=== PATIENT | male | born 1980 | race American Indian/Alaskan Native ===

== ENCOUNTER 2020-12-07 00:31 | Emergency (ER) | payer SELFPAY ==
--- NOTE | 2020-12-07 01:00 | Emergency Department Report ---
ED General Adult HPI - General Stated complaint: LEFTSIDE EARACHE/HEAD PAIN Time Seen by Provider: 12/07/20 00:55 - History of Present Illness Initial comments: 40 yo AA M pt presents with complaints of left ear pain x 3 months, worsening now with left facial pain and pressure x 5 days. He denies any decreased hearing, ear drainage, fever/chills/sweats, cough, or dysphagia. Pt rates his pain as a 8/10 in severity. He states hx of recurrent sinus infections and states this pain is similar. He denies currently following with an ENT specialist. - Related Data Previous Rx's Medication Instructions Recorded Last Taken Type Amoxicillin/Potassium Clav 1 each PO BID 10 Days #20 tablet 12/07/20 Unknown Rx [Augmentin 875-125 Tablet] Ibuprofen [Motrin 800 MG tab] 800 mg PO Q8HR PRN #20 tablet 12/07/20 Unknown Rx Prednisone [predniSONE 10 mg 10 mg PO .TAPER #1 tab.ds.pk 12/07/20 Unknown Rx (6-Day Pack, 21 Tabs)] Allergies Allergy/AdvReac Type Severity Reaction Status Date / Time No Known Allergies Allergy Unverified 12/07/20 01:00 ED Review of Systems ROS: Stated complaint: LEFTSIDE EARACHE/HEAD PAIN Other details as noted in HPI Constitutional: denies: chills, fever, malaise, weakness Eyes: denies: eye pain, vision change ENT: ear pain, throat pain Respiratory: denies: cough, shortness of breath Cardiovascular: denies: chest pain Gastrointestinal: denies: abdominal pain, nausea, vomiting Skin: denies: rash, lesions, change in color Neurological: headache Hematological/Lymphatic: denies: swollen glands ED Past Medical Hx - Medications Home Medications: Home Medications Medication Instructions Recorded Confirmed Last Taken Type Amoxicillin/Potassium Clav 1 each PO BID 10 Days #20 tablet 12/07/20 Unknown Rx [Augmentin 875-125 Tablet] Ibuprofen [Motrin 800 MG tab] 800 mg PO Q8HR PRN #20 tablet 12/07/20 Unknown Rx Prednisone [predniSONE 10 mg 10 mg PO .TAPER #1 tab.ds.pk 12/07/20 Unknown Rx (6-Day Pack, 21 Tabs)] ED Physical Exam - General General appearance: alert, in no apparent distress - Head Head exam: Present: atraumatic, normocephalic - Eye Eye exam: Present: normal appearance. Absent: scleral icterus, conjunctival injection - ENT ENT exam: Present: normal orophraynx, TM's normal bilaterally, normal external ear exam - Expanded ENT Exam Expanded Mouth exam: Absent: drooling, trismus Teeth exam: Absent: dental caries Throat exam: Positive: other (left maxillary sinus and facial tenderness to palpation noted without skin changes or swelling). Negative: tonsillar erythema, tonsillomegaly - Neck Neck exam: Present: full ROM. Absent: tenderness, lymphadenopathy - Respiratory Respiratory exam: Present: normal lung sounds bilaterally. Absent: respiratory distress - Cardiovascular Cardiovascular Exam: Present: regular rate - Extremities Exam Extremities exam: Present: full ROM - Back Exam Back exam: Present: normal inspection - Neurological Exam Neurological exam: Present: alert, oriented X3, normal gait - Psychiatric Psychiatric exam: Present: normal affect, normal mood ED Medical Decision Making - Medical Decision Making 40 yo AA M pt presents with complaints of left ear pain x 3 months, worsening now with left facial pain and pressure x 5 days. He denies any decreased hearing, ear drainage, fever/chills/sweats, cough, or dysphagia. Pt rates his pain as a 8/10 in severity. He states hx of recurrent sinus infections and states this pain is similar. He denies currently following with an ENT specialist. Will treat for acute bacterial sinusitis with Augmentin. Recommend f/u with ENT given recurrent infections. Referral provided. Discused strict return precautions in detail with pt who verbalizes understanding. He is well appearing and stable for d/c home Critical care attestation.: If time is entered above; I have spent that time in minutes in the direct care of this critically ill patient, excluding procedure time. ED Disposition Clinical Impression: Acute bacterial sinusitis, Elevated blood pressure reading Disposition: DC- TO HOME OR SELFCARE Is pt being admited?: No Condition: Stable Instructions: Sinusitis, Adult, Hypertension, Adult, [id number] Prescriptions: Amoxicillin/Potassium Clav [Augmentin 875-125 Tablet] 1 each PO BID 10 Days #20 tablet Ibuprofen [Motrin 800 MG tab] 800 mg PO Q8HR PRN #20 tablet PRN Reason: pain Prednisone [predniSONE 10 mg (6-Day Pack, 21 Tabs)] 10 mg PO .TAPER #1 tab.ds.pk Referrals: MILTON GUZMAN MD [Staff Physician] - 3-5 Days
[2020-12-07 01:15] VITALS: BP 160/94
== END 2020-12-07 01:19 | disposition home or self-care (01) ==
LOC: ED 00:31
DX: J01.90 Acute sinusitis, unspecified (principal); R03.0 Elevated blood-pressure reading, without diagnosis of hypertension; Z79.899 Other long term (current) drug therapy
CPT/HCPCS: 99282